=== PATIENT | female | born 1940 | race Caucasian/White ===

== ENCOUNTER 2018-11-02 14:48 | Inpatient (IN) | payer OTHER, MEDICAID ==
[2018-11-02 15:29] LABS: ADD MAN DIFF? NO
[2018-11-02] MEDS: METOPROLOL 25 MG TAB PO (15:32)
[2018-11-02] MEDS: METOPROLOL 5 MG INJ IV (15:33)
[2018-11-02 15:34] LABS: WHITE BLOOD COUNT 6.6 10^3/ul (4.8-10.8)
[2018-11-02 15:34] LABS: BASOPHILS % 0.6 % (0.0-2.0); EOSINOPHILS # 0.1 10^3/ul (0.0-0.5); EOSINOPHILS % 1.8 % (0.0-7.0); HEMATOCRIT 40.8 % (37.0-47.0); HEMOGLOBIN 12.6 g/dl (12.0-16.0); LYMPHOCYTES # 2.6 10^3/ul (0.8-2.9); LYMPHOCYTES % 40.1 % (15.0-51.0); MEAN CORPUSCULAR HEMOGLOBIN 27.8 pg (29.0-33.0); MEAN CORPUSCULAR HGB CONC 30.9 g/dl (32.0-37.0); MEAN CORPUSCULAR VOLUME 90.1 fl (82.0-101.0); MEAN PLATELET VOLUME 11.2 fl (7.4-10.4); MONOCYTE # 0.4 10^3/ul (0.3-0.9); MONOCYTES % 6.7 % (0.0-11.0); NEUTROPHIL # 3.3 10^3/ul (1.6-7.5); NEUTROPHILS % 50.6 % (39.0-77.0); PLATELET COUNT 433 10^3/UL (140-415); RED BLOOD COUNT 4.53 10^6/ul (4.20-5.40); RED CELL DISTRIBUTION WIDTH 15.4 % (11.5-14.5)
[2018-11-02 15:51] LABS: ANION GAP 15 (5-13); BLOOD UREA NITROGEN 19 mg/dl (7-20); CALCIUM 10.8 mg/dl (8.4-10.2); CARBON DIOXIDE 23 mmol/L (21-31); CHLORIDE 101 mmol/L (97-110); CREATININE 0.58 mg/dl (0.44-1.00); GLUCOSE 118 mg/dl (70-220); POTASSIUM 4.6 mmol/L (3.5-5.1); SODIUM 139 mmol/L (135-144)
[2018-11-02 16:03] LABS: TROPONIN-I 0.025 ng/ml (0.000-0.120)
[2018-11-02] MEDS ORDERED: ONDANSETRON 4 MG INJ IV ×2 (16:30→17:30)
[2018-11-02] MEDS ORDERED: ACETAMINOPHEN 325 MG TAB PO (16:30)
[2018-11-02] MEDS ORDERED: ALBUTEROL 0.083% (NEB) 2.5 MG/3 ML AMP HHN (17:30)
[2018-11-02] MEDS ORDERED: NACL 0.9% 3 ML SYG IV (17:30)
[2018-11-02] MEDS ORDERED: MAGNESIUM HYDROXIDE 30ML CUP PO (17:30)
[2018-11-02] MEDS ORDERED: DOCUSATE SODIUM 100 MG CAP PO (17:30)
[2018-11-02] MEDS ORDERED: NITROGLYCERIN (SL) 0.4 MG TAB SL (17:30)
[2018-11-02] MEDS ORDERED: METOPROLOL 5 MG INJ IV (17:30)
[2018-11-02] MEDS ORDERED: DILTIAZEM (SR) 60 MG CAP PO (17:30)
[2018-11-02] MEDS: FAMOTIDINE 20 MG TAB PO (18:12)
[2018-11-02] MEDS: FUROSEMIDE 40 MG INJ IV (18:13)
[2018-11-02] MEDS: DILTIAZEM 60 MG TAB PO ×2 (18:13→23:51)
[2018-11-02 18:20] LABS: B-TYPE NATRIURETIC PEPTIDE 6650 PG/ML (0-450)
[2018-11-02 18:28] LABS: FREE THYROXINE INDEX (Calc) 4.58 ug/ml (0.65-3.89); T3 UPTAKE 38.8 % (23.5-40.5); T4 (THYROXINE) 11.8 ug/dl (5.5-11.0)
[2018-11-02] MEDS: DOCUSATE SODIUM 100 MG CAP PO (21:00)
[2018-11-02 21:07] LABS: CREATINE KINASE 75 IU/L (23-200)
[2018-11-02 21:20] LABS: CK INDEX 4.1; CK-MB 3.09 ng/ml (0.0-2.4); TROPONIN-I 0.019 ng/ml (0.000-0.120)
[2018-11-02] MEDS: ACETAMINOPHEN 325 MG TAB PO (21:51)
[2018-11-02] MEDS: TRIAMCINOLONE ACET 0.1% 15 GM CR TOP (23:00)
[2018-11-03] MEDS: ACETAMINOPHEN 325 MG TAB PO ×2 (05:39→20:15)
[2018-11-03] MEDS: DILTIAZEM 60 MG TAB PO ×3 (05:39→17:42)
[2018-11-03] MEDS: FUROSEMIDE 40 MG INJ IV ×2 (05:40→05:49)
[2018-11-03] MEDS: ASPIRIN 81 MG TAB PO (08:12)
[2018-11-03] MEDS: FAMOTIDINE 20 MG TAB PO (08:13)
[2018-11-03] MEDS: DOCUSATE SODIUM 100 MG CAP PO ×2 (08:13→20:15)
[2018-11-03] MEDS: RIVAROXABAN 20 MG TABLET PO (08:13)
[2018-11-03] MEDS: TRIAMCINOLONE ACET 0.1% 15 GM CR TOP ×3 (08:13→20:15)
[2018-11-03] MEDS: LISINOPRIL 5 MG TAB PO (08:13)
[2018-11-03 11:07] LABS: ADD MAN DIFF? NO
[2018-11-03 11:17] LABS: WHITE BLOOD COUNT 6.9 10^3/ul (4.8-10.8)
[2018-11-03 11:17] LABS: BASOPHIL # 0.1 10^3/ul (0.0-0.1); BASOPHILS % 0.7 % (0.0-2.0); EOSINOPHILS # 0.2 10^3/ul (0.0-0.5); EOSINOPHILS % 2.8 % (0.0-7.0); HEMATOCRIT 37.4 % (37.0-47.0); HEMOGLOBIN 11.7 g/dl (12.0-16.0); LYMPHOCYTES % 29.7 % (15.0-51.0); MEAN CORPUSCULAR HEMOGLOBIN 28.1 pg (29.0-33.0); MEAN CORPUSCULAR HGB CONC 31.3 g/dl (32.0-37.0); MEAN CORPUSCULAR VOLUME 89.7 fl (82.0-101.0); MEAN PLATELET VOLUME 10.7 fl (7.4-10.4); MONOCYTE # 0.4 10^3/ul (0.3-0.9); MONOCYTES % 6.4 % (0.0-11.0); NEUTROPHIL # 4.2 10^3/ul (1.6-7.5); NEUTROPHILS % 60.3 % (39.0-77.0); PLATELET COUNT 356 10^3/UL (140-415); RED BLOOD COUNT 4.17 10^6/ul (4.20-5.40); RED CELL DISTRIBUTION WIDTH 15.5 % (11.5-14.5)
[2018-11-03 11:34] LABS: CREATINE KINASE 61 IU/L (23-200)
[2018-11-03 11:35] LABS: ANION GAP 10 (5-13); BLOOD UREA NITROGEN 23 mg/dl (7-20); CALCIUM 10.3 mg/dl (8.4-10.2); CARBON DIOXIDE 29 mmol/L (21-31); CHLORIDE 100 mmol/L (97-110); CREATININE 0.69 mg/dl (0.44-1.00); GLUCOSE 115 mg/dl (70-220); MAGNESIUM 1.6 mg/dl (1.7-2.5); POTASSIUM 3.6 mmol/L (3.5-5.1); SODIUM 139 mmol/L (135-144)
[2018-11-03 11:43] LABS: CK INDEX 4.5; CK-MB 2.74 ng/ml (0.0-2.4); TROPONIN-I 0.018 ng/ml (0.000-0.120)
[2018-11-03] MEDS: MAGNESIUM SULFATE 2 GM/50 ML 50 ML IVPB (12:41)
[2018-11-04] MEDS: ACETAMINOPHEN 325 MG TAB PO ×2 (03:40→19:02)
[2018-11-04] MEDS: DILTIAZEM 60 MG TAB PO ×4 (05:53→22:44)
[2018-11-04 07:03] LABS: ADD MAN DIFF? NO
[2018-11-04 07:13] LABS: WHITE BLOOD COUNT 5.9 10^3/ul (4.8-10.8)
[2018-11-04 07:13] LABS: BASOPHILS % 0.7 % (0.0-2.0); EOSINOPHILS # 0.3 10^3/ul (0.0-0.5); EOSINOPHILS % 4.4 % (0.0-7.0); HEMATOCRIT 36.1 % (37.0-47.0); HEMOGLOBIN 11.1 g/dl (12.0-16.0); LYMPHOCYTES # 1.4 10^3/ul (0.8-2.9); LYMPHOCYTES % 24.5 % (15.0-51.0); MEAN CORPUSCULAR HEMOGLOBIN 27.7 pg (29.0-33.0); MEAN CORPUSCULAR HGB CONC 30.7 g/dl (32.0-37.0); MEAN PLATELET VOLUME 10.9 fl (7.4-10.4); MONOCYTE # 0.4 10^3/ul (0.3-0.9); MONOCYTES % 7.5 % (0.0-11.0); NEUTROPHIL # 3.7 10^3/ul (1.6-7.5); NEUTROPHILS % 62.7 % (39.0-77.0); PLATELET COUNT 326 10^3/UL (140-415); RED BLOOD COUNT 4.01 10^6/ul (4.20-5.40); RED CELL DISTRIBUTION WIDTH 15.5 % (11.5-14.5)
[2018-11-04 07:26] LABS: ANION GAP 3 (5-13); BLOOD UREA NITROGEN 21 mg/dl (7-20); CALCIUM 9.9 mg/dl (8.4-10.2); CARBON DIOXIDE 31 mmol/L (21-31); CHLORIDE 106 mmol/L (97-110); GLUCOSE 111 mg/dl (70-220); MAGNESIUM 1.7 mg/dl (1.7-2.5); SODIUM 140 mmol/L (135-144)
[2018-11-04] MEDS: TRIAMCINOLONE ACET 0.1% 15 GM CR TOP ×2 (09:00→22:55)
[2018-11-04] MEDS: FAMOTIDINE 20 MG TAB PO (09:00)
[2018-11-04] MEDS: RIVAROXABAN 20 MG TABLET PO (09:12)
[2018-11-04] MEDS: DOCUSATE SODIUM 100 MG CAP PO ×2 (09:12→22:42)
[2018-11-04] MEDS: ASPIRIN 81 MG TAB PO (09:13)
[2018-11-04] MEDS: LISINOPRIL 5 MG TAB PO (09:14)
[2018-11-04] MEDS: FUROSEMIDE 40 MG INJ IV (09:15)
[2018-11-04] MEDS ORDERED: LABETALOL HCL 20MG INJ IV (10:00)
[2018-11-04] MEDS ORDERED: VANCOMYCIN IV PER PHARMACY XX (10:30)
[2018-11-04] MEDS: MAGNESIUM SULFATE 2 GM/50 ML 50 ML IVPB (11:11)
[2018-11-04 12:05] LABS: ADD UMIC YES; UR ASCORBIC ACID NEGATIVE (NEGATIVE); UR BILIRUBIN (Dip) NEGATIVE (NEGATIVE); UR BLOOD (Dip) NEGATIVE (NEGATIVE); UR CLARITY CLEAR (CLEAR); UR COLOR YELLOW (YELLOW); UR GLUCOSE (Dip) NEGATIVE (NEGATIVE); UR KETONES (Dip) NEGATIVE (NEGATIVE); UR LEUKOCYTE ESTERASE (Dip) NEGATIVE Leu/ul (NEGATIVE); UR NITRITE (Dip) NEGATIVE (NEGATIVE); UR RBC 1 /HPF (0-5); UR SPECIFIC GRAVITY (Dip) 1.021 (1.003-1.030); UR TOTAL PROTEIN (Dip) 1+ mg/dl (NEGATIVE); UR UROBILINOGEN (Dip) NEGATIVE (NEGATIVE); UR WBC 2 /HPF (0-5)
[2018-11-04] MEDS: VANCOMYCIN HCL 1.25 GM in SOD CHLORIDE 0.9% 250 ML IVPB (15:19)
[2018-11-04] MEDS ORDERED: METOPROLOL 5 MG INJ IV (16:30)
[2018-11-04] MEDS: DIGOXIN 500 MCG INJ IV (18:37)
[2018-11-05] MEDS: DIGOXIN 500 MCG INJ IV
[2018-11-05] MEDS: ACETAMINOPHEN 325 MG TAB PO ×2 (03:27→16:29)
[2018-11-05] MEDS: DILTIAZEM 60 MG TAB PO ×2 (05:07→14:16)
[2018-11-05] MEDS: RIVAROXABAN 20 MG TABLET PO (08:46)
[2018-11-05] MEDS: FAMOTIDINE 20 MG TAB PO ×2 (08:47→09:00)
[2018-11-05] MEDS: SPIRONOLACTONE 25 MG TAB PO (08:48)
[2018-11-05] MEDS: ASPIRIN 81 MG TAB PO (08:48)
[2018-11-05] MEDS: DOCUSATE SODIUM 100 MG CAP PO ×2 (08:49→21:00)
[2018-11-05] MEDS: LISINOPRIL 5 MG TAB PO (08:49)
[2018-11-05] MEDS: TRIAMCINOLONE ACET 0.1% 15 GM CR TOP ×2 (08:52→21:36)
[2018-11-05] MEDS: FUROSEMIDE 40 MG INJ IV (09:00)
[2018-11-05] MEDS: VANCOMYCIN 1 GM 250 ML IVPB (11:00)
[2018-11-06] MEDS: ACETAMINOPHEN 325 MG TAB PO ×4 (03:04→22:08)
[2018-11-06 06:19] LABS: ADD MAN DIFF? NO
[2018-11-06 06:22] LABS: WHITE BLOOD COUNT 6.1 10^3/ul (4.8-10.8)
[2018-11-06 06:22] LABS: BASOPHILS % 0.7 % (0.0-2.0); EOSINOPHILS # 0.3 10^3/ul (0.0-0.5); EOSINOPHILS % 4.9 % (0.0-7.0); HEMATOCRIT 38.8 % (37.0-47.0); HEMOGLOBIN 11.5 g/dl (12.0-16.0); LYMPHOCYTES # 1.4 10^3/ul (0.8-2.9); MEAN CORPUSCULAR HEMOGLOBIN 27.4 pg (29.0-33.0); MEAN CORPUSCULAR HGB CONC 29.6 g/dl (32.0-37.0); MEAN CORPUSCULAR VOLUME 92.4 fl (82.0-101.0); MEAN PLATELET VOLUME 10.4 fl (7.4-10.4); MONOCYTE # 0.5 10^3/ul (0.3-0.9); MONOCYTES % 8.4 % (0.0-11.0); NEUTROPHIL # 3.8 10^3/ul (1.6-7.5); NEUTROPHILS % 62.8 % (39.0-77.0); PLATELET COUNT 330 10^3/UL (140-415); RED CELL DISTRIBUTION WIDTH 15.4 % (11.5-14.5)
[2018-11-06 07:03] LABS: ALANINE AMINOTRANSFERASE 20 IU/L (13-69); ALBUMIN 3.3 g/dl (3.3-4.9); ALBUMIN/GLOBULIN RATIO 1.13; ALKALINE PHOSPHATASE 68 IU/L (42-121); ANION GAP 2 (5-13); ASPARTATE AMINO TRANSFERASE 18 IU/L (15-46); BILIRUBIN,INDIRECT 0.5 mg/dl (0-1.1); BILIRUBIN,TOTAL 0.5 mg/dl (0.2-1.3); BLOOD UREA NITROGEN 22 mg/dl (7-20); CALCIUM 10.3 mg/dl (8.4-10.2); CARBON DIOXIDE 30 mmol/L (21-31); CHLORIDE 107 mmol/L (97-110); CREATININE 0.58 mg/dl (0.44-1.00); GLUCOSE 118 mg/dl (70-220); POTASSIUM 4.7 mmol/L (3.5-5.1); SODIUM 139 mmol/L (135-144); TOTAL PROTEIN 6.2 g/dl (6.1-8.1)
[2018-11-06 07:48] LABS: MAGNESIUM 1.9 mg/dl (1.7-2.5)
[2018-11-06 08:10] LABS: IONIZED CALCIUM 1.4 mmol/L (1.1-1.4)
[2018-11-06] MEDS: FUROSEMIDE 40 MG TAB PO (09:00)
[2018-11-06] MEDS: SPIRONOLACTONE 25 MG TAB PO (09:00)
[2018-11-06] MEDS: DOCUSATE SODIUM 100 MG CAP PO ×2 (09:16→22:07)
[2018-11-06] MEDS: RIVAROXABAN 20 MG TABLET PO (09:16)
[2018-11-06] MEDS: LISINOPRIL 5 MG TAB PO (09:16)
[2018-11-06] MEDS: FAMOTIDINE 20 MG TAB PO (09:16)
[2018-11-06] MEDS: ASPIRIN 81 MG TAB PO (09:17)
[2018-11-06] MEDS: TRIAMCINOLONE ACET 0.1% 15 GM CR TOP ×2 (09:21→22:08)
[2018-11-06] MEDS: VANCOMYCIN 1 GM 250 ML IVPB (11:00)
[2018-11-06] MEDS: DIGOXIN 0.25 MG TAB PO (11:54)
[2018-11-06] MEDS: MAGNESIUM SULFATE 2 GM/50 ML 50 ML IVPB (11:55)
[2018-11-06] MEDS: DIGOXIN 0.125 MG TAB PO (13:54)
[2018-11-07 06:00] LABS: ADD MAN DIFF? NO
[2018-11-07] MEDS: ACETAMINOPHEN 325 MG TAB PO ×3 (06:02→20:03)
[2018-11-07 06:04] LABS: WHITE BLOOD COUNT 5.1 10^3/ul (4.8-10.8)
[2018-11-07 06:04] LABS: BASOPHILS % 0.6 % (0.0-2.0); EOSINOPHILS # 0.2 10^3/ul (0.0-0.5); EOSINOPHILS % 4.5 % (0.0-7.0); HEMATOCRIT 36.9 % (37.0-47.0); HEMOGLOBIN 10.8 g/dl (12.0-16.0); LYMPHOCYTES # 1.6 10^3/ul (0.8-2.9); LYMPHOCYTES % 30.7 % (15.0-51.0); MEAN CORPUSCULAR HEMOGLOBIN 27.3 pg (29.0-33.0); MEAN CORPUSCULAR HGB CONC 29.3 g/dl (32.0-37.0); MEAN CORPUSCULAR VOLUME 93.2 fl (82.0-101.0); MEAN PLATELET VOLUME 10.4 fl (7.4-10.4); MONOCYTE # 0.5 10^3/ul (0.3-0.9); MONOCYTES % 9.6 % (0.0-11.0); NEUTROPHIL # 2.8 10^3/ul (1.6-7.5); NEUTROPHILS % 54.4 % (39.0-77.0); PLATELET COUNT 278 10^3/UL (140-415); RED BLOOD COUNT 3.96 10^6/ul (4.20-5.40); RED CELL DISTRIBUTION WIDTH 15.2 % (11.5-14.5)
[2018-11-07 06:39] LABS: ALANINE AMINOTRANSFERASE 16 IU/L (13-69); ALBUMIN 3.3 g/dl (3.3-4.9); ALBUMIN/GLOBULIN RATIO 1.17; ALKALINE PHOSPHATASE 71 IU/L (42-121); ANION GAP 5 (5-13); ASPARTATE AMINO TRANSFERASE 20 IU/L (15-46); BILIRUBIN,INDIRECT 0.2 mg/dl (0-1.1); BILIRUBIN,TOTAL 0.2 mg/dl (0.2-1.3); BLOOD UREA NITROGEN 27 mg/dl (7-20); CALCIUM 10.4 mg/dl (8.4-10.2); CARBON DIOXIDE 28 mmol/L (21-31); CHLORIDE 106 mmol/L (97-110); CREATININE 0.53 mg/dl (0.44-1.00); GLUCOSE 89 mg/dl (70-220); SODIUM 139 mmol/L (135-144); TOTAL PROTEIN 6.1 g/dl (6.1-8.1)
[2018-11-07] MEDS: FUROSEMIDE 40 MG TAB PO ×2 (09:00→13:03)
[2018-11-07] MEDS: DOCUSATE SODIUM 100 MG CAP PO ×2 (09:00→20:03)
[2018-11-07] MEDS: SPIRONOLACTONE 25 MG TAB PO (09:00)
[2018-11-07] MEDS: FAMOTIDINE 20 MG TAB PO (09:01)
[2018-11-07] MEDS: RIVAROXABAN 20 MG TABLET PO (09:01)
[2018-11-07] MEDS: ASPIRIN 81 MG TAB PO (09:02)
[2018-11-07] MEDS: LISINOPRIL 5 MG TAB PO (09:03)
[2018-11-07] MEDS: TRIAMCINOLONE ACET 0.1% 15 GM CR TOP ×2 (09:06→21:28)
[2018-11-07] MEDS: VANCOMYCIN 1 GM 250 ML IVPB (11:00)
[2018-11-07] MEDS: DIGOXIN 0.125 MG TAB PO (12:34)
[2018-11-07] MEDS: CLINDAMYCIN 300 MG CAP PO ×2 (14:34→20:03)
[2018-11-08] MEDS: CLINDAMYCIN 300 MG CAP PO ×3 (00:11→13:29)
[2018-11-08] MEDS: FAMOTIDINE 20 MG TAB PO (08:55)
[2018-11-08] MEDS: RIVAROXABAN 20 MG TABLET PO (08:55)
[2018-11-08] MEDS: ASPIRIN 81 MG TAB PO (08:55)
[2018-11-08] MEDS: ACETAMINOPHEN 325 MG TAB PO (08:55)
[2018-11-08] MEDS: FUROSEMIDE 40 MG TAB PO (08:57)
[2018-11-08] MEDS: DOCUSATE SODIUM 100 MG CAP PO (08:58)
[2018-11-08] MEDS: LISINOPRIL 5 MG TAB PO (08:58)
[2018-11-08] MEDS: SPIRONOLACTONE 25 MG TAB PO (08:59)
[2018-11-08] MEDS: TRIAMCINOLONE ACET 0.1% 15 GM CR TOP (08:59)
[2018-11-08] MEDS: DIGOXIN 0.125 MG TAB PO (13:30)
== END 2018-11-08 14:15 | DRG 308 ==
LOC: PP2 11-07 15:54 → E/R 14:48 → TEL 11-04 16:41
PROVIDERS: Internal Medicine
DX: I48.91 Unspecified atrial fibrillation (principal); I50.43 Acute on chronic combined systolic (congestive) and diastolic (congestive) heart failure; L03.312 Cellulitis of back [any part except buttock and flank]; I11.0 Hypertensive heart disease with heart failure; D50.9 Iron deficiency anemia, unspecified; E83.52 Hypercalcemia; E83.42 Hypomagnesemia; F32.9 Major depressive disorder, single episode, unspecified; F22 Delusional disorders; F03.90 Unspecified dementia, unspecified severity, without behavioral disturbance, psychotic disturbance, mood disturbance, and anxiety; I25.5 Ischemic cardiomyopathy; I34.0 Nonrheumatic mitral (valve) insufficiency; I35.1 Nonrheumatic aortic (valve) insufficiency; L85.3 Xerosis cutis; R53.1 Weakness; Z91.14 Patient's other noncompliance with medication regimen; Z87.891 Personal history of nicotine dependence
CPT/HCPCS: 36415; 71045; 80048; 80053; 81001; 82330; 82550; 82553; 83735; 83880; 84436; 84443; 84479; 84484; 85025; 93005; 93306; 93971; 96374; 97162; 97165; 99285-25; G0378